=== PATIENT | male | born 1940 | race Caucasian/White ===

== ENCOUNTER 2018-04-24 11:57 | Emergency (ER) | payer MEDICARE, OTHER ==
[2018-04-24] MEDS ORDERED: Bacitracin Zinc 1 Packet ONE (12:46)
--- NOTE | 2018-04-24 13:08 | CT ---
CT HEAD NONCONTRAST: INDICATIONS: Posttraumatic injury. COMPARISON: Head CT from 01/23/2014. FINDINGS: There is mild parenchymal volume loss with compensatory dilatation of the ventricular system. No int racranial hemorrhage, mass effect, or midline shift. There is dystrophic calcification at the right posterior cranial fossa, redemonstration of a colloid cyst. IMPRESSION: 1. No acute intracranial hemorrhage or mass effect. 2. Stable chronic findings, as discussed above. POS: ANTOLIN
--- NOTE | 2018-04-24 13:13 | CT ---
CT FACIAL BONES: CLINICAL HISTORY: Posttraumatic facial injury. Pain. FINDINGS: Comminuted bilateral displaced nasal bone fractures with overlying prominence of the nasal soft tissu es is present. No displacement of the orbital carmona. No retrobulbar hematoma or mass effect. A mil d fluid level is dependently located within the left maxillary sinus. The zygomatic arches and the p terygoid plates are intact. No post traumatic dislocation of either temporomandibular joint. There is a punctate ossific density, extraconal in location, at the anteromedial left orbit. The adjacent left frontal sinus wall is intact. It is not clear as to whether this represents dystrophic calcific ation or an avulsed fracture fragment, although a donor site is not evident. There is no significant surrounding hematoma. IMPRESSION: 1. Displaced comminuted bilateral nasal bone fracture with overlying soft tissue injury. 2. Punctate density of the anteromedial superior extraconal space of the left orbit, nonspecific, as discussed above. POS: ANTOLIN
== END 2018-04-24 13:00 | disposition home or self-care (01) ==
LOC: SCSER 11:57
DX: S02.2XXA Fracture of nasal bones, initial encounter for closed fracture (principal); S00.81XA Abrasion of other part of head, initial encounter; S60.511A Abrasion of right hand, initial encounter; S80.212A Abrasion, left knee, initial encounter; S80.211A Abrasion, right knee, initial encounter; E78.5 Hyperlipidemia, unspecified; I10 Essential (primary) hypertension; G20 Parkinson's disease; Z79.02 Long term (current) use of antithrombotics/antiplatelets; W01.0XXA Fall on same level from slipping, tripping and stumbling without subsequent striking against object, initial encounter; Y93.01 Activity, walking, marching and hiking; Y92.481 Parking lot as the place of occurrence of the external cause
CPT/HCPCS: 70450; 70486